=== PATIENT | male | born 1970 | race Caucasian/White ===

== ENCOUNTER 2020-06-25 14:57 | Emergency (ER) | payer OTHER, MEDICAID, SELFPAY ==
[2020-06-25] VITALS (10 sets, daily range): BP systolic 131–168; BP diastolic 78–103; PULSE 64–85; RESP 18–22; TEMP 36.8–36.9; O2SAT 96–99; BMI 37.3
--- NOTE | 2020-06-25 15:25 | DI.RAD.S_ITS ---
PROCEDURE: XR CHEST 2V INDICATIONS: shortness of breath TECHNIQUE: 2 views of the chest were acquired. COMPARISON: None. FINDINGS: Surgical changes and devices: None. Lungs and pleura: Lungs are clear. No pleural effusions or pneumothorax. Mediastinum: Mediastinal contours are normal. Heart size is normal. Bones and chest wall: No suspicious bony abnormalities. Mild dextroconvex scoliotic curvature is seen. Soft tissues appear unremarkable. IMPRESSION: Clear lungs. Dictated by: Eric Ross M.D. on 06/25/2020 at 16:31 Approved by: Eric Ross M.D. on 06/25/2020 at 16:32
--- NOTE | 2020-06-25 15:58 | PC.NURSE ---
patient reports his usual SOB from smoking is increasing and limiting him from daily activities. he states his extremeties are swelling and he has no Hx of edema. says he never sees a doctor, reports otherwise healthy.
[2020-06-25 16:06] LABS: Prothrombin Time 10.9 SECONDS (10.1-12.7)
[2020-06-25 16:09] LABS: PTT Partial Thromboplastin Tim 36 SECONDS (26.4-36.2)
[2020-06-25 16:10] LABS: Add Manual Diff / Slide Review NO; Basophils Absolute Auto 0 /uL (0-100); Basophils Percent Auto 0.6 % (0-2); Eosinophils Absolute Auto 200 /uL (0-450); Eosinophils Percent Auto 2.2 % (2-4); Hematocrit 42.9 % (41-53); Hemoglobin 14.3 g/dL (13.5-17.5); Lymphocytes Absolute Auto 3100 /uL (1100-4500); Lymphocytes Percent Auto 40.8 % (25-40); Mean Corpuscular HGB Conc 33.5 % (30-36); Mean Corpuscular Hemoglobin 29.3 PG (26-34); Mean Corpuscular Volume 87.7 fL (80-100); Monocytes Absolute Auto 700 /uL (0-900); Monocytes Percent Auto 9.4 % (3-14); Neutrophils Absolute Auto 3600 /uL (1500-7000); Platelet Count 242 X10^3/uL (150-400); Red Blood Cell Count 4.89 X10^6/uL (4.5-5.9); Red Cell Distribution Width 13.5 % (11.6-14.8); White Blood Cell Count 7.6 X10^3/uL (4.5-11.0)
[2020-06-25 16:11] LABS: Alanine Aminotransferase 23 IU/L (<50); Albumin 4.2 g/dL (3.5-5.0); Albumin Globulin Ratio 1.2 (1.0-2.8); Alkaline Phosphatase 74 U/L (38-126); Aspartate Aminotransferase 27 IU/L (17-59); BUN Creatinine Ratio 22.2 (6-22); Bilirubin Total 0.6 mg/dL (0.2-1.3); Blood Urea Nitrogen 14 mg/dL (9-20); Calcium 9.3 mg/dL (8.4-10.2); Carbon Dioxide 26 mmol/L (22-32); Chloride 104 mmol/L (98-107); Estimated Glomerular Filt Rate > 60.0 mL/min (>60); Globulin 3.4 g/dL (1.7-4.1); Glucose 96 mg/dL (70-100); HEMOLYSIS 26 (0-50); Potassium 4.2 mmol/L (3.4-5.1); Sodium 137 mmol/L (137-145); Total Protein 7.6 g/dL (6.3-8.2)
[2020-06-25 16:20] LABS: NT-proBNP (BNP-Adult 18+) 24 pg/mL (<125)
[2020-06-25 16:55] LABS: Creatine Kinase 167 U/L (55-170)
[2020-06-25 17:08] LABS: Troponin I < 0.012 ng/mL (0.01-0.034)
[2020-06-25 17:11] LABS: CKMB % Relative Index 1.7 % (1.5-5.0); Creatine Kinase MB 2.77 ng/mL (<2.37)
[2020-06-25 17:19] LABS: COVID19 - ADMIT (NP swab/PCR) Negative (Negative)
[2020-06-25 18:19] LABS: D Dimer < 200 ng/mL (<230)
[2020-06-25 20:32] LABS: Bacteria Urine None Seen; WBC Urine None Seen (0-5/HPF)
[2020-06-25 20:34] LABS: Appearance Urine UA CLEAR; Bilirubin Urine UA NEGATIVE (NEGATIVE); Color Urine UA YELLOW; Glucose Urine UA NEGATIVE (Negative); Ketones Urine UA NEGATIVE (NEGATIVE); Leukocyte Esterase Urine UA NEGATIVE (NEGATIVE); Nitrite Urine UA NEGATIVE (Negative); Occult Blood Urine UA NEGATIVE (Negative); Protein Urine UA NEGATIVE (Negative); Urobilinogen Urine UA 0.2 E.U./dL (0.2); pH Urine UA 5.5 (4.5-8.0)
--- NOTE | 2020-06-25 20:34 | ED.GENADULT ---
HPI - General Adult General Chief complaint: Shortness of Breath/Dyspnea Stated complaint: both legs swelling, hands arms swelling Time Seen by Provider: 06/25/20 16:43 History of Present Illness HPI narrative: 50-year-old gentleman presents with swelling in his hands and feet. He states that he has been told that his blood pressures been elevated in the past but he has never been on medications. Denies known coronary artery disease, strokes, chest pain, dyspnea, abdominal pain. He complains of no orthopnea. No recent fevers or cough. He does note that he will occasionally use methamphetamine. Related Data Home Medications Medication Instructions Recorded Confirmed No Known Home Medications 06/25/20 06/25/20 Allergies Allergy/AdvReac Type Severity Reaction Status Date / Time No Known Drug Allergies Allergy Verified 06/25/20 15:45 Review of Systems Review of Systems Narrative: All systems reviewed and are otherwise unremarkable Patient History Medical History Smoker Social History Smoking Status: Current every day smoker Smoking Status: Current every day smoker Substance Use Type: marijuana Exam Narrative Exam Narrative: General: Healthy appearing, in no acute distress. Able to give a complete and coherent history. Well-nourished well-developed HEENT: Moist mucous membranes, normal sclera with reactive pupils, Neck: No JVD, supple Respiratory: Lungs are clear to auscultation, no wheezing no rales no rhonchi. Full and symmetrical air movement Cardiac: Regular rate and rhythm no murmurs no bruits Abdomen: Soft, nontender, good bowel tones, no flank pain Skin: Warm and dry, erythema bilaterally with developing venous stasis changes bilaterally Neurologic: Grossly neurologically intact with no obvious asymmetries or abnormalities Extremities: No trauma, hyperemic and edematous hands without infection Psych: Cooperative, appropriate insight and affect Initial Vital Signs Initial Vital Signs: Vital Signs Temperature 98.4 F 06/25/20 15:17 Pulse Rate 77 06/25/20 15:17 Respiratory Rate 22 06/25/20 15:17 Blood Pressure 132/90 06/25/20 15:17 Pulse Oximetry 99 06/25/20 15:17 Course Orders Ordered: ED Orders 06/25/20 15:25 XR chest 2V Stat EKG-12 Lead Stat Measure peak expiratory flow ONCE RT Consult Eval and Treat Now 06/25/20 15:40 Complete Blood Count AUTO DIFF Stat Comprehensive Metabolic Panel Stat D Dimer Stat Lactate (Lactic Acid) Stat NT-proBNP (BNP-Adult 18+) Stat Partial Thromboplastin Time Stat Prothrombin Time INR Stat Troponin & CK Cardiac Panel Stat 06/25/20 15:50 COVID19 - ADMIT ([employer] swab/PCR) Stat 06/25/20 18:50 Urinalysis and Microscopic Stat Vital Signs Vital signs: Vital Signs - 8 hr 06/25/20 15:17 06/25/20 15:49 06/25/20 16:00 Temperature 98.4 F Pulse Rate 77 85 71 Respiratory Rate 22 22 Blood Pressure 132/90 131/78 Pulse Oximetry 99 98 97 06/25/20 16:15 06/25/20 16:18 06/25/20 16:30 Temperature Pulse Rate 69 69 Respiratory Rate 20 19 Blood Pressure 142/78 H 137/85 Pulse Oximetry 96 99 99 06/25/20 16:45 06/25/20 17:00 06/25/20 17:15 Temperature Pulse Rate 64 67 71 Respiratory Rate 21 18 Blood Pressure 164/91 H 168/82 H 159/85 H Pulse Oximetry 98 98 98 Medical Decision Making Medical Records Medical records reviewed: Yes I reviewed the patient's medical records. Lab Data Lab results reviewed: Yes I reviewed the patient's lab results. Result diagrams: 06/25/20 15:40 06/25/20 15:40 Labs: Lab Results 06/25/20 06/25/20 06/25/20 Range/Units 15:40 15:40 15:40 WBC 7.6 (4.5-11.0) X10^3/uL RBC 4.89 (4.5-5.9) X10^6/uL Hgb 14.3 (13.5-17.5) g/dL Hct 42.9 (41-53) % MCV 87.7 (80-100) fL MCH 29.3 (26-34) PG MCHC 33.5 (30-36) % RDW 13.5 (11.6-14.8) % Plt Count 242 (150-400) X10^3/uL Neut % (Auto) 47.0 L (50-75) % Lymph % (Auto) 40.8 H (25-40) % [place] % (Auto) 9.4 (3-14) % Eos % (Auto) 2.2 (2-4) % Baso % (Auto) 0.6 (0-2) % Neut # (Auto) 3600 (3491-1501) /uL Lymph # (Auto) 3100 (5365-0722) /uL [place] # (Auto) 700 (0-900) /uL Eos # (Auto) 200 (0-450) /uL Baso # (Auto) 0 (0-100) /uL PT (10.1-12.7) SECONDS INR (0.9-1.3) APTT (26.4-36.2) SECONDS D-Dimer (<230) ng/mL Sodium 137 (137-145) mmol/L Potassium 4.2 (3.4-5.1) mmol/L Chloride 104 (98-107) mmol/L Carbon Dioxide 26 (22-32) mmol/L BUN 14 (9-20) mg/dL Creatinine 0.63 L (0.66-1.25) mg/dL Estimated GFR > 60.0 (>60) mL/min BUN/Creatinine Ratio 22.2 H (6-22) Glucose 96 (70-100) mg/dL Lactate 1.0 (0.7-2.1) mmol/L Calcium 9.3 (8.4-10.2) mg/dL Total Bilirubin 0.6 (0.2-1.3) mg/dL AST 27 (17-59) IU/L ALT 23 (<50) IU/L Alkaline Phosphatase 74 (38-126) U/L Total Creatine Kinase (55-170) U/L CK-MB (CK-2) (<2.37) ng/mL CK-MB (CK-2) Rel Index (1.5-5.0) % Troponin I (0.01-0.034) ng/mL NT-Pro-B Natriuret Pep 24 (<125) pg/mL Total Protein 7.6 (6.3-8.2) g/dL Albumin 4.2 (3.5-5.0) g/dL Globulin 3.4 (1.7-4.1) g/dL Albumin/Globulin Ratio 1.2 (1.0-2.8) Urine Color Urine Appearance Urine pH (4.5-8.0) Ur Specific [place] (1.000-1.035) Urine Protein (Negative) Urine Glucose (UA) (Negative) g/dL Urine Ketones (NEGATIVE) Urine Occult Blood (Negative) Urine Nitrate (Negative) Urine Bilirubin (NEGATIVE) Urine Urobilinogen (0.2) E.U./dL Ur Leukocyte Esterase (NEGATIVE) Urine RBC (0-5/HPF) Urine WBC (0-5/HPF) Urine Bacteria (None) Ur Culture Indicated? SARS-CoV-2 (PCR) (Negative) 06/25/20 06/25/20 06/25/20 Range/Units 15:40 15:40 15:40 WBC (4.5-11.0) X10^3/uL RBC (4.5-5.9) X10^6/uL Hgb (13.5-17.5) g/dL Hct (41-53) % MCV (80-100) fL MCH (26-34) PG MCHC (30-36) % RDW (11.6-14.8) % Plt Count (150-400) X10^3/uL Neut % (Auto) (50-75) % Lymph % (Auto) (25-40) % [place] % (Auto) (3-14) % Eos % (Auto) (2-4) % Baso % (Auto) (0-2) % Neut # (Auto) (8413-7339) /uL Lymph # (Auto) (4115-6885) /uL [place] # (Auto) (0-900) /uL Eos # (Auto) (0-450) /uL Baso # (Auto) (0-100) /uL PT 10.9 (10.1-12.7) SECONDS INR 1.0 (0.9-1.3) APTT 36 (26.4-36.2) SECONDS D-Dimer < 200 (<230) ng/mL Sodium (137-145) mmol/L Potassium (3.4-5.1) mmol/L Chloride (98-107) mmol/L Carbon Dioxide (22-32) mmol/L BUN (9-20) mg/dL Creatinine (0.66-1.25) mg/dL Estimated GFR (>60) mL/min BUN/Creatinine Ratio (6-22) Glucose (70-100) mg/dL Lactate (0.7-2.1) mmol/L Calcium (8.4-10.2) mg/dL Total Bilirubin (0.2-1.3) mg/dL AST (17-59) IU/L ALT (<50) IU/L Alkaline Phosphatase (38-126) U/L Total Creatine Kinase 167 (55-170) U/L CK-MB (CK-2) 2.77 H (<2.37) ng/mL CK-MB (CK-2) Rel Index 1.7 (1.5-5.0) % Troponin I < 0.012 (0.01-0.034) ng/mL NT-Pro-B Natriuret Pep (<125) pg/mL Total Protein (6.3-8.2) g/dL Albumin (3.5-5.0) g/dL Globulin (1.7-4.1) g/dL Albumin/Globulin Ratio (1.0-2.8) Urine Color Urine Appearance Urine pH (4.5-8.0) Ur Specific [place] (1.000-1.035) Urine Protein (Negative) Urine Glucose (UA) (Negative) g/dL Urine Ketones (NEGATIVE) Urine Occult Blood (Negative) Urine Nitrate (Negative) Urine Bilirubin (NEGATIVE) Urine Urobilinogen (0.2) E.U./dL Ur Leukocyte Esterase (NEGATIVE) Urine RBC (0-5/HPF) Urine WBC (0-5/HPF) Urine Bacteria (None) Ur Culture Indicated? SARS-CoV-2 (PCR) (Negative) 06/25/20 06/25/20 Range/Units 15:50 18:50 WBC (4.5-11.0) X10^3/uL RBC (4.5-5.9) X10^6/uL Hgb (13.5-17.5) g/dL Hct (41-53) % MCV (80-100) fL MCH (26-34) PG MCHC (30-36) % RDW (11.6-14.8) % Plt Count (150-400) X10^3/uL Neut % (Auto) (50-75) % Lymph % (Auto) (25-40) % [place] % (Auto) (3-14) % Eos % (Auto) (2-4) % Baso % (Auto) (0-2) % Neut # (Auto) (2027-9820) /uL Lymph # (Auto) (2376-3956) /uL [place] # (Auto) (0-900) /uL Eos # (Auto) (0-450) /uL Baso # (Auto) (0-100) /uL PT (10.1-12.7) SECONDS INR (0.9-1.3) APTT (26.4-36.2) SECONDS D-Dimer (<230) ng/mL Sodium (137-145) mmol/L Potassium (3.4-5.1) mmol/L Chloride (98-107) mmol/L Carbon Dioxide (22-32) mmol/L BUN (9-20) mg/dL Creatinine (0.66-1.25) mg/dL Estimated GFR (>60) mL/min BUN/Creatinine Ratio (6-22) Glucose (70-100) mg/dL Lactate (0.7-2.1) mmol/L Calcium (8.4-10.2) mg/dL Total Bilirubin (0.2-1.3) mg/dL AST (17-59) IU/L ALT (<50) IU/L Alkaline Phosphatase (38-126) U/L Total Creatine Kinase (55-170) U/L CK-MB (CK-2) (<2.37) ng/mL CK-MB (CK-2) Rel Index (1.5-5.0) % Troponin I (0.01-0.034) ng/mL NT-Pro-B Natriuret Pep (<125) pg/mL Total Protein (6.3-8.2) g/dL Albumin (3.5-5.0) g/dL Globulin (1.7-4.1) g/dL Albumin/Globulin Ratio (1.0-2.8) Urine Color Yellow Urine Appearance Clear Urine pH 5.5 (4.5-8.0) Ur Specific [place] 1.020 (1.000-1.035) Urine Protein Negative (Negative) Urine Glucose (UA) Negative (Negative) g/dL Urine Ketones Negative (NEGATIVE) Urine Occult Blood Negative (Negative) Urine Nitrate Negative (Negative) Urine Bilirubin Negative (NEGATIVE) Urine Urobilinogen 0.2 (0.2) E.U./dL Ur Leukocyte Esterase Negative (NEGATIVE) Urine RBC 0-1/hpf (0-5/HPF) Urine WBC None seen (0-5/HPF) Urine Bacteria None seen (None) Ur Culture Indicated? Cult not indicated SARS-CoV-2 (PCR) Negative (Negative) ECG Data Attestation: I personally reviewed and interpreted this ECG as follows: Interpretation: Sinus rhythm at a rate of 72 Normal intervals, normal axis No acute ischemic changes MDM Narrative Medical decision making narrative: 50-year-old gentleman presents with hands and feet swollen normal blood work. It turns out that he is living in his truck and sleeps with his feet down, never lays down flat. I believe that may explain the chronic dependent swelling in his feet. He also notes occasional methamphetamine use and that may explain some of the swelling in his hands. When further discussing his diet, he proudly states that he ?has never eaten a vegetable in his life? and that he definitely eats ?plenty of crap food?. We discussed the importance of lower sodium and healthy alternatives if he wants his edema to improve. There is no evidence at this time of infection, heart failure, liver failure, renal failure. He is safe for home discharge Discharge Plan Departure Patient Disposition: Home Clinical Impression: Edema Qualifiers: Edema type: due to malnutrition Malnutrition edema type: unspecified malnutrition type Qualified Code(s): E43 - Unspecified severe protein-calorie malnutrition Instructions: Getting to the Heart of a Healthy Diet: Empty-Calorie Foods Activity Restrictions/Additional Instructions: Thank you for coming in today Your blood work was reassuring we normal. You do not have kidney failure, liver failure, diabetes, heart failure, or any evidence of a heart attack. I suspect the edema your experiencing in your lower legs is because you are not able to lay down flat when you sleep. If you are able to build up sleeping flat form into your truck I think you may find that helps. In general, he what you eat and how you read it does make a huge difference with her overall health. Eating less salt and more vegetables will likely prove quite helpful for you. I wish you the best Prescriptions: No Action No Known Home Medications RF: 0
[2020-06-25 20:44] LABS: Culture Indicated Urine Cult Not Indicated; RBC Urine 0-1/HPF (0-5/HPF)
== END 2020-06-25 20:52 | disposition home or self-care (01) ==
PROVIDERS: Emergency Medicine; Emergency Provider Emergency Medicine
DX: R60.0 Localized edema (principal); E43 Unspecified severe protein-calorie malnutrition
CPT/HCPCS: 36415; 71046; 80053; 81001; 82550; 82553; 83605; 83880; 84484; 85025; 85379; 85610; 85730; 87635; 93005; 94150; 99283; 99284